=== PATIENT | female | born 1995 | race Caucasian/White ===

== ENCOUNTER → 2022-09-05 | Outpatient (CLI) | payer OTHER | LOC: LAB 13:10 | DX: Z20.822 Contact with and (suspected) exposure to COVID-19 (principal) ==

== ENCOUNTER 2025-01-29 12:41 | Emergency (ER) | payer OTHER, BC ==
[2025-01-29] MEDS ORDERED: CYCLOBENZ5 MG PO (13:03)
[2025-01-29] MEDS ORDERED: IBU800 M1 PO (13:03)
[2025-01-29] MEDS ORDERED: SINGULAIR PO (13:04)
[2025-01-29] MEDS ORDERED: SYMBICORT1 AE2 IH (13:04)
[2025-01-29] MEDS ORDERED: FLONASE ALLERG9.9 ML NS (13:05)
[2025-01-29] MEDS ORDERED: CHILDREN'S ZYRT10 M1 PO (13:05)
[2025-01-29] MEDS ORDERED: OPTIMUM AC500 Millio PO (13:05)
[2025-01-29] MEDS ORDERED: VITAMIN C PUR1000 MG PO (13:06)
[2025-01-29] MEDS ORDERED: CRANBERRY450 M2 PO (13:06)
[2025-01-29] MEDS ORDERED: ALBUTEROL2.5 MG/3 M (13:07)
[2025-01-29] MEDS ORDERED: ALLEGRA D 12 HO1 TER PO (13:08)
[2025-01-29 15:03] VITALS: BP 145/79
== END 2025-01-29 15:05 | disposition home or self-care (01) ==
LOC: ED 12:41
DX: S99.911A Unspecified injury of right ankle, initial encounter (principal); E66.9 Obesity, unspecified; X50.1XXA Overexertion from prolonged static or awkward postures, initial encounter; Y99.0 Civilian activity done for income or pay
CPT/HCPCS: L4386